=== PATIENT | female | born 1990 | race African-American/Black ===

== ENCOUNTER → 2023-07-14 | Emergency (ER) | payer SELFPAY ==
[2023-07-14 04:46] LABS: Absolute Eosinophils 0.1 K/uL (0-0.5); Absolute Lymphocytes (CBC) 1.9 K/uL (0.7-4.9); Absolute Monocytes 0.4 K/uL (0.1-1.3); Absolute Neutrophil 2.2 K/uL (1.8-8.0); Basophils % 0.4 % (0-1.3); Eosinophils % 2.5 % (0-4.4); Hematocrit 36.9 % (36.0-45.0); Hemoglobin 12.2 g/dL (12.0-15.0); Lymphocytes % 41.8 % (15.3-44.8); MCH 26.5 pg (27.0-35.0); MCHC 33.1 g/dL (32.0-36.0); MPV 9.3 fL (7.6-11.3); Monocytes % 8.5 % (3.3-12.3); Neutrophils % 46.8 % (41.7-73.7); Nucleated Red Blood Cells % 0.2 % (0-0); Platelets 202 thou/uL (152-406); RBC Red Blood Cell Count 4.61 M/uL (3.86-4.86); Red Cell Distribution Width 14.9 % (12.1-15.2)
[2023-07-14 05:04] LABS: PT Prothrombin Time 11.5 SECONDS (9.5-12.5); Protime INR 1.05
[2023-07-14 05:24] LABS: ALT/SGPT 43 U/L (13-56); AST/SGOT 56 U/L (15-37); Albumin 3.6 g/dL (3.4-5.0); Albumin/Globulin Ratio 0.7 (1.1-1.8); Alkaline Phosphatase 61 U/L (45-117); Anion Gap 7.7 mEq/L (5.0-15.0); BUN Blood Urea Nitrogen 12 mg/dL (7-18); Bicarbonate 28 mEq/L (21-32); Bilirubin Total 0.2 mg/dL (0.2-1.0); Globulin 5.2 g/dL (2.3-3.5); Glomerular Filtration Rate 119 ml/min (=/>90); Glucose Level 115 mg/dL (74-106); Magnesium 1.9 mg/dL (1.6-2.4); NT PRO-BNP 18 pg/mL (<125); Potassium 3.7 mEq/L (3.5-5.1); Protein, Total 8.8 g/dL (6.4-8.2); Sodium Level 138 mEq/L (136-145)
[2023-07-14 05:29] LABS: Bilirubin Direct < 0.1 mg/dL (0-0.2); Bilirubin Indirect, Calculated ND mg/dL (0.2-0.8); Troponin High Sensitivity < 3.0 pg/mL (<58.9)
[2023-07-14 05:29] LABS: Barbiturates NEGATIVE (NEGATIVE); Benzodiazepines NEGATIVE (NEGATIVE); Cocaine NEGATIVE (NEGATIVE); METHAMPHETAM NEGATIVE (NEGATIVE); Methadone NEGATIVE (NEGATIVE); Opiates NEGATIVE (NEGATIVE); Phencyclidine NEGATIVE (NEGATIVE); THC Cannibis NEGATIVE (NEGATIVE)
--- NOTE | 2023-07-14 06:09 | EDPHYS ---
Physician Documentation [facility] Name: Teresa Bales Age: 33 yrs Sex: Female : 1990 Arrival Date: 07/14/2023 Time: 03:45 Bed 10 Private MD: ED Physician Antonio Pardo HPI: 07/13 04:10 This 33 yrs old Black Female presents to ER via Ambulatory with complaints of Numbness sp4 Of Hand. 06:09 33-year-old black female presents with complaint of bilateral hand numbness and sp4 tingling. . Historical: - Allergies: 04:00 No Known Allergies; rv - PMHx: 04:00 None; rv - PSHx: 04:00 section; rv - Immunization history:: Adult Immunizations up to date. - Social history:: Smoking status: Patient denies any tobacco usage or history of. - Family history:: not pertinent. ROS: 06:09 Constitutional: Negative for fever, chills, and weight loss, positive for numbness and sp4 tingling of bilateral hands 06:09 All other systems are negative, Exam: 06:09 Constitutional: This is a well developed, well nourished patient who is awake, alert, sp4 and in no acute distress. Head/Face: Normocephalic, atraumatic. Eyes: Pupils equal round and reactive to light, extra-ocular motions intact. Lids and lashes normal. Conjunctiva and sclera are not injected. Cornea within normal limits. Periorbital areas with no swelling, redness, or edema. ENT: Nares patent. No nasal discharge, no septal abnormalities noted. Tympanic membranes are normal and external auditory canals are clear. Oropharynx with no redness, swelling, or masses, exudates, or evidence of obstruction, uvula midline. Mucous membranes moist. Neck: Trachea midline, no thyromegaly or masses palpated, and no cervical lymphadenopathy. Supple, full range of motion without nuchal rigidity, or vertebral point tenderness. Chest/axilla: Normal chest wall appearance and motion. Nontender with no deformity. No lesions are appreciated. Cardiovascular: Regular rate and rhythm with a normal S1 and S2. No gallops, murmurs, or rubs. Normal PMI, no JVD. No pulse deficits. Respiratory: Lungs have equal breath sounds bilaterally, clear to auscultation and percussion. No rales, rhonchi or wheezes noted. No increased work of breathing, no retractions or nasal flaring. Abdomen/GI: Soft, with normal bowel sounds. No distension or tympany. No guarding or rebound. No evidence of tenderness throughout. Back: No spinal tenderness. No costovertebral tenderness. Skin: Warm, dry with normal turgor. Normal color with no rashes, no lesions, and no evidence of cellulitis. MS/ Extremity: Pulses equal, no cyanosis. Neurovascular intact. Full, normal range of motion. Neuro: Awake and alert, GCS 15, oriented to person, place, time, and situation. Cranial nerves II-XII grossly intact. Motor strength 5/5 in all extremities. Sensory grossly intact. Psych: Awake, alert, with orientation to person, place and time. Behavior, mood, and affect are within normal limits 06:09 ECG was reviewed by the Attending Physician. EKG at 0 424 reveals normal sinus rhythm at a rate of 63 Vital Signs: 03:58 BP 141 / 107; Pulse 72; Resp 17; Temp 98; Pulse Ox 100% ; Weight 118.39 kg; Height 5 rv ft. 4 in. ; 05:00 BP 124 / 69; Pulse 85; Resp 16; Pulse Ox 100% on R/A; pf1 06:00 BP 118 / 77; Pulse 65; Resp 16; Temp 98.2; Pulse Ox 99% on R/A; Pain 0/10; pf1 03:58 Body Mass Index 44.80 (118.39 kg, 162.56 cm) rv 06:00 Pain Scale: Adult pf1 NIH Stroke Scale Scores: 06:09 NIHSS Score: 0 sp4 [place] Coma Score: 06:09 Eye Response: spontaneous(4). Motor Response: obeys commands(6). Verbal Response: sp4 oriented(5). Total: 15. MDM: 04:11 Patient medically screened. sp4 06:09 Differential diagnosis: Paresthesias. Data reviewed: vital signs, nurses notes, lab sp4 test result(s), EKG. ED course: Workup today is unremarkable patient stable for discharge home. Advised follow-up with tree care foreman for thyroid panel check and other tests with primary care physician may find necessary. . 07/13 04:19 Order name: Basic Metabolic Panel; Complete Time: 05:55 sp4 07/13 04:19 Order name: CBC with Diff; Complete Time: 05:55 sp4 07/13 04:19 Order name: LFT's; Complete Time: 05:55 sp4 07/13 04:19 Order name: Magnesium; Complete Time: 05:55 sp4 07/13 04:19 Order name: NT PRO-BNP; Complete Time: 05:55 sp4 07/13 04:19 Order name: PT-INR; Complete Time: 05:55 sp4 07/13 04:19 Order name: Troponin HS; Complete Time: 05:55 sp4 07/13 04:19 Order name: Test, Serum; Complete Time: 05:55 sp4 07/13 04:19 Order name: Urine Drug Screen; Complete Time: 05:55 sp4 07/13 04:19 Order name: EKG; Complete Time: 04:19 sp4 07/13 04:19 Order name: Cardiac monitoring; Complete Time: 04:25 sp4 07/13 04:19 Order name: EKG - Nurse/Tech; Complete Time: 04:38 sp4 07/13 04:19 Order name: IV Saline Lock; Complete Time: 04:38 sp4 07/13 04:19 Order name: Labs collected and sent; Complete Time: 04:38 sp4 07/13 04:19 Order name: O2 Per Protocol; Complete Time: 04:25 sp4 07/13 04:19 Order name: O2 Sat Monitoring; Complete Time: 04:25 sp4 Administered Medications: No medications were administered Disposition Summary: 07/14/23 06:08 Discharge Ordered Problem: new sp4 Symptoms: have improved sp4 Condition: Stable sp4 Diagnosis - Paresthesia of skin sp4 - Bilateral hand numbness and ting sp4 Followup: sp4 - With: Terrence Kaminski DO - When: 7 - 10 days - Reason: Recheck today's complaints Discharge Instructions: - Discharge Summary Sheet sp4 - Paresthesia sp4 Forms: - Patient Portal Instructions sp4 NIH Stroke Scale - NIH Stroke Score Date: 07/14/2023 Time: 06:09 Total Score = 0 10. Dysarthria (speech clarity - read or repeat words) - 0(Normal) 11. Extinction and Inattention (visual/tactile/auditory/spatial/personal) - 0(No abnormality) 1a. Level of Consciousness (LOC) - 0(Alert) 1b. Level of Consciousness (LOC) (Month \T\ Age) - 0(Both) 1c. LOC Commands (Open \T\ Closes Eyes/Store Consultant) - 0(Both) 2. Best Gaze (Lateral Gaze Paresis) - 0(Normal) 3. Visual Field Loss - 0(No visual loss) 4. Facial Palsy - 0(Normal) 5a. Left Arm: Motor (10-second hold) - 0(No drift) 5b. Right Arm: Motor (10-second hold) - 0(No drift) 6a. Left Leg: Motor (5-second hold - always test supine) - 0(No drift) 6b. Right Leg: Motor (5-second hold - always test supine) - 0(No drift) 7. Limb Ataxia (finger/nose \T\ heel/ruff - test with eyes open) - 0(Absent) 8. Sensory Loss (pinprick arms/legs/face) - 0(Normal) 9. Best Language: Aphasia (description/naming/reading) - 0(No aphasia) Initials: sp4 Signatures: Dispatcher [employer] Joaquín Wall, Antonio Joiner RN, MD MD sp4
--- NOTE | 2023-07-14 06:09 | ER ---
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 denies chest pain/sob/fever. Coronavirus screen: At this time, the client does not indicate any symptoms associated with coronavirus-19. Ebola Screen: No symptoms or risks identified at this time. Initial Sepsis Screen: Does the patient meet any 2 criteria? No. Patient's initial sepsis screen is negative. Does the patient have a suspected source of infection? No. Patient's initial sepsis screen is negative. Risk Assessment: Do you want to hurt yourself or someone else? Patient reports no desire to harm self or others. Onset of symptoms was July 14, 2023. 03:58 Method Of Arrival: Ambulatory rv 03:58 Acuity: CARLOS 4 rv Triage Assessment: 04:00 General: Appears comfortable, Behavior is calm, cooperative. Pain: Denies pain. Neuro: rv Level of Consciousness is awake, alert, obeys commands, Oriented to person, place, time, situation. Cardiovascular: Capillary refill < 3 seconds Patient's skin is warm and dry. Respiratory: Airway is patent Respiratory effort is even, unlabored. GI: No signs and/or symptoms were reported involving the gastrointestinal system. : No signs and/or symptoms were reported regarding the genitourinary system. Historical: - Allergies: 04:00 No Known Allergies; rv - PMHx: 04:00 None; rv - PSHx: 04:00 section; rv - Immunization history:: Adult Immunizations up to date. - Social history:: Smoking status: Patient denies any tobacco usage or history of. - Family history:: not pertinent. Screenin:00 [facility] ED Fall Risk Assessment (Adult) History of falling in the last 3 months, rv including since admission No falls in past 3 months (0 pts) Score/Fall Risk Level 0 - 2 = Low Risk Oriented to surroundings, Maintained a safe environment, Educated pt \T\ family on fall prevention, incl call for assistance when getting out of bed, Assessed \T\ reinforced patient's understanding of fall precautions. Abuse screen: Denies threats or abuse. Denies injuries from another. Nutritional screening: No deficits noted. Tuberculosis screening: No symptoms or risk factors identified. Assessment: 04:05 General: Appears in no apparent distress. comfortable, obese, well groomed, well pf1 developed, Behavior is calm, cooperative, appropriate for age, quiet. 04:05 Pain: Denies pain. Neuro: Level of Consciousness is awake, alert, obeys commands, pf1 Oriented to person, place, time, situation, Reports numbness in right hand and worse to the left hand. Cardiovascular: No deficits noted. Capillary refill < 3 seconds Patient's skin is warm and dry. Respiratory: No deficits noted. Airway is patent Respiratory effort is even, unlabored, Respiratory pattern is regular, symmetrical. GI: No deficits noted. No signs and/or symptoms were reported involving the gastrointestinal system. Abdomen is round non-distended, Bowel sounds present X 4 quads. : No deficits noted. No signs and/or symptoms were reported regarding the genitourinary system. EENT: No deficits noted. No signs and/or symptoms were reported regarding the EENT system. Derm: No deficits noted. No signs and/or symptoms reported regarding the dermatologic system. Musculoskeletal: Reports numbness in right hand and left hand. 05:00 Reassessment: Patient appears in no apparent distress at this time. Patient and/or pf1 family updated on plan of care and expected duration. Pain level reassessed. Patient is alert, oriented x 3, equal unlabored respirations, skin warm/dry/pink. Patient states feeling better. Patient states symptoms have improved. 06:00 Reassessment: Patient appears in no apparent distress at this time. Patient and/or pf1 family updated on plan of care and expected duration. Pain level reassessed. Patient is alert, oriented x 3, equal unlabored respirations, skin warm/dry/pink. Patient denies pain at this time. Patient states feeling better. Patient states symptoms have improved. Vital Signs: 03:58 BP 141 / 107; Pulse 72; Resp 17; Temp 98; Pulse Ox 100% ; Weight 118.39 kg; Height 5 rv ft. 4 in. ; 05:00 BP 124 / 69; Pulse 85; Resp 16; Pulse Ox 100% on R/A; pf1 06:00 BP 118 / 77; Pulse 65; Resp 16; Temp 98.2; Pulse Ox 99% on R/A; Pain 0/10; pf1 03:58 Body Mass Index 44.80 (118.39 kg, 162.56 cm) rv 06:00 Pain Scale: Adult pf1 [place] Coma Score: 06:09 Eye Response: spontaneous(4). Motor Response: obeys commands(6). Verbal Response: sp4 oriented(5). Total: 15. NIH Stroke Scale Scores: 06:09 NIHSS Score: 0 sp4 ED Course: 03:48 Patient arrived in ED. mr 04:00 Triage completed. rv 04:00 Arm band placed on right wrist. rv 04:00 Patient has correct armband on for positive identification. Client placed on continuous rv cardiac and pulse oximetry monitoring. NIBP monitoring applied. 04:00 Door closed. Noise minimized. pf1 04:00 No provider procedures requiring assistance completed. rv 04:10 Antonio Pardo MD is Attending Physician. sp4 04:15 Warm blanket given. pf1 04:24 EKG done, by ED staff, reviewed by Antonio Pardo MD. pf1 04:34 Inserted saline lock: 22 gauge in right antecubital area, using aseptic technique. kmf Blood collected. 04:35 Initial lab(s) drawn, by al, sent to lab. km 06:07 Terrence Kaminski DO is Referral Physician. sp4 06:16 Provided Education on: follow up. pf1 06:16 IV discontinued, intact, bleeding controlled, No redness/swelling at site. Pressure pf1 dressing applied. Administered Medications: No medications were administered Medication: 04:00 VIS not applicable for this client. rv Outcome: 06:08 Discharge ordered by . sp4 06:16 Discharged to home ambulatory, pf1 06:16 Condition: improved 06:16 Discharge instructions given to patient, Instructed on discharge instructions, follow up and referral plans. Demonstrated understanding of instructions, follow-up care, 06:17 Patient left the ED. pf1 NIH Stroke Scale - NIH Stroke Score Date: 07/14/2023 Time: 06:09 Total Score = 0 10. Dysarthria (speech clarity - read or repeat words) - 0(Normal) 11. Extinction and Inattention (visual/tactile/auditory/spatial/personal) - 0(No abnormality) 1a. Level of Consciousness (LOC) - 0(Alert) 1b. Level of Consciousness (LOC) (Month \T\ Age) - 0(Both) 1c. LOC Commands (Open \T\ Closes Eyes/Air Conditioning Unit Assembler) - 0(Both) 2. Best Gaze (Lateral Gaze Paresis) - 0(Normal) 3. Visual Field Loss - 0(No visual loss) 4. Facial Palsy - 0(Normal) 5a. Left Arm: Motor (10-second hold) - 0(No drift) 5b. Right Arm: Motor (10-second hold) - 0(No drift) 6a. Left Leg: Motor (5-second hold - always test supine) - 0(No drift) 6b. Right Leg: Motor (5-second hold - always test supine) - 0(No drift) 7. Limb Ataxia (finger/nose \T\ heel/ruff - test with eyes open) - 0(Absent) 8. Sensory Loss (pinprick arms/legs/face) - 0(Normal) 9. Best Language: Aphasia (description/naming/reading) - 0(No aphasia) Initials: sp4 Signatures: McgillElle hdz, Reg Reg mr Joaquín Elder, RN Silvia Ha RN RN pf1 Antonio Pardo MD MD sp4 Karen Ceballos [facility]
[2023-07-14 06:45] VITALS: BP 141/107; TEMP 98; O2SAT 100
--- NOTE | 2023-07-15 14:25 | EKG ---
Test Date: 2023-07-14 Test Time: 04:24:40 Medical Support Assistant: SUAD MEASUREMENT RESULTS: Intervals: Rate: 63 [place]: 158 QRSD: 92 QT: 432 QTc: 442 [place]: P: 21 [place]: 158 QRS: -9 T: 14 INTERPRETIVE STATEMENTS: Normal sinus rhythm with sinus arrhythmia Normal ECG No previous ECG available for comparison Electronically Signed On 07-15-23 14:23:50 CDT by Rahul Chan
== END ==
LOC: EDBD 03:45 → ER 03:45
DX: R20.2 Paresthesia of skin (principal); R20.0 Anesthesia of skin
CPT/HCPCS: 36415; 80048; 80076; 80307; 83735; 83880; 84484; 84703; 85025; 85610; 93005; 99284

== ENCOUNTER 2023-10-01 18:05 | Emergency (ER) | payer SELFPAY ==
[2023-10-01 18:53] LABS: Absolute Monocytes 0.4 K/uL (0.1-1.3); Absolute Neutrophil 2.4 K/uL (1.8-8.0); Basophils % 0.3 % (0-1.3); Hematocrit 37.8 % (36.0-45.0); Lymphocytes % 40.9 % (15.3-44.8); MCH 25.7 pg (27.0-35.0); MCHC 31.7 g/dL (32.0-36.0); MCV 81.2 fL (80-100); MPV 9.8 fL (7.6-11.3); Monocytes % 8.6 % (3.3-12.3); Neutrophils % 49.2 % (41.7-73.7); Platelets 211 thou/uL (152-406); RBC Red Blood Cell Count 4.66 M/uL (3.86-4.86); Red Cell Distribution Width 15.4 % (12.1-15.2)
[2023-10-01 19:20] LABS: Anion Gap 8.4 mEq/L (5.0-15.0); BUN Blood Urea Nitrogen 15 mg/dL (7-18); Bicarbonate 28 mEq/L (21-32); Glomerular Filtration Rate 119 ml/min (=/>90); Glucose Level 116 mg/dL (74-106); Magnesium 1.6 mg/dL (1.6-2.4); Potassium 3.4 mEq/L (3.5-5.1); Sodium Level 137 mEq/L (136-145); Thyroid Stimulating Hormone 0.429 uIU/mL (0.358-3.740)
[2023-10-01 19:22] LABS: Troponin High Sensitivity < 3.0 pg/mL (<58.9)
--- NOTE | 2023-10-01 19:49 | RAD REPORT ---
EXAM DESCRIPTION: Tania Single View10/01/2023 7:25 pm CLINICAL HISTORY: Palpitations COMPARISON: none FINDINGS: The lungs appear clear of acute infiltrate. The heart is normal size IMPRESSION: No acute abnormalities displayed
--- NOTE | 2023-10-01 20:11 | EDPHYS ---
Physician Documentation [facility] Name: Teresa Bales Age: 33 yrs Sex: Female : 1990 Arrival Date: 10/01/2023 Time: 18:05 Bed 14 Private MD: ED Physician Yovanny Vallejo HPI: 09/30 23:57 This 33 yrs old Black Female presents to ER via Ambulatory with complaints of kb Palpitations. 23:57 Patient is a 33-year-old female who presents for intermittent palpitations since kb yesterday. States it only lasts for a couple of beats that she takes deep breath and it goes away. Denies any medical history, shortness of breath, chest pain. . Historical: - Allergies: 18:20 No Known Allergies; mb9 - Home Meds: 18:20 None [Active]; mb9 - PMHx: 18:20 None; mb9 - PSHx: 18:20 section; mb9 - Immunization history:: Adult Immunizations up to date. - Infectious Disease History:: Denies. - Social history:: Smoking status: Patient denies any tobacco usage or history of. ROS: 23:57 Constitutional: As per HPI kb Exam: 23:57 Constitutional: This is a well developed, well nourished patient who is awake, alert, kb and in no acute distress. Head/Face: Normocephalic, atraumatic. ENT: Moist Mucous membranes Cardiovascular: Regular rate Respiratory: Respirations even and unlabored. No increased work of breathing. Talking in full sentences Abdomen/GI: Soft, non-tender. No distention Skin: Warm, dry with normal turgor. Normal color. MS/ Extremity: Pulses equal, no cyanosis. Neurovascular intact. Full, normal range of motion. Neuro: Awake and alert, GCS 15, oriented to person, place, time, and situation. Moves all extremities. Normal gait. 23:57 ECG was reviewed by the Attending Physician. Vital Signs: 18:19 BP 145 / 87; Pulse 66; Resp 18; Temp 98; Pulse Ox 100% ; Weight 117.93 kg; Height 5 ft. mb9 6 in. ; Pain 0/10; 19:22 BP 118 / 97; Pulse 65; Pulse Ox 100% on R/A; Pain 0/10; tm6 20:37 BP 106 / 80; Pulse 63; Resp 19; Temp 96.9(TE); Pulse Ox 100% on R/A; Pain 0/10; tm6 18:19 Body Mass Index 41.96 (117.93 kg, 167.64 cm) mb9 18:19 Pain Scale: Adult mb9 19:22 Pain Scale: Adult tm6 20:37 Pain Scale: Adult tm6 MDM: 18:12 Patient medically screened. kb 23:57 Differential diagnosis: arrythmia, dehydration, stress disorder. Data reviewed: vital kb signs, nurses notes. Counseling: I had a detailed discussion with the patient and/or guardian regarding the historical points, exam findings, and any diagnostic results supporting the discharge/admit diagnosis, lab results, radiology results, the need for outpatient follow up, a family practitioner, to return to the emergency department if symptoms worsen or persist or if there are any questions or concerns that arise at home. 09/30 18:23 Order name: Basic Metabolic Panel; Complete Time: 19:24 kb 09/30 18:23 Order name: CBC with Diff; Complete Time: 19:14 kb 09/30 18:23 Order name: Magnesium; Complete Time: 19:24 kb 09/30 18:23 Order name: Troponin HS; Complete Time: 19:24 kb 04 18:23 Order name: TSH; Complete Time: 19:24 kb 04 18:23 Order name: XRAY Chest (1 view); Complete Time: 19:49 kb 09/30 18:23 Order name: EKG; Complete Time: 18:24 kb 09/30 18:23 Order name: Cardiac monitoring; Complete Time: 18:27 kb 09/30 18:23 Order name: EKG - Nurse/Tech; Complete Time: 18:27 kb 09/30 18:23 Order name: IV Saline Lock; Complete Time: 18:36 kb 04 18:23 Order name: Labs collected and sent; Complete Time: 18:36 kb 09/30 18:23 Order name: O2 Per Protocol; Complete Time: 18:27 kb 09/30 18:23 Order name: O2 Sat Monitoring; Complete Time: 18:27 kb EC:57 Rate is 69 beats/min. Rhythm is regular. QRS [place] is Normal. OR interval is normal at kb 154 msec. QRS interval is normal at 92 msec. QT interval is normal at 435 msec. Administered Medications: No medications were administered Disposition Summary: 10/01/23 20:11 Discharge Ordered Notes: Location: Home kb Condition: Stable kb Diagnosis - Palpitations kb Followup: kb - With: Emergency Department - When: As needed - Reason: Worsening of condition Followup: kb - With: Private Physician - When: 2 - 3 days - Reason: Recheck today's complaints, Continuance of care, Re-evaluation by your physician Discharge Instructions: - Discharge Summary Sheet kb - Palpitations, Bnur-yx-Sble kb Forms: - Medication Reconciliation Form kb - Antibiotic Education kb - Prescription Opioid Use kb - Patient Portal Instructions kb - Leadership Thank You Letter kb Signatures: Dispatcher [employer] Ingrid Ibrahim, CB-C CB-Elle Prasad, RN RN mb9
--- NOTE | 2023-10-01 20:11 | ER ---
Nurse's Notes [facility] Name: Teresa Bales Age: 33 yrs Sex: Female : 1990 Arrival Date: 10/01/2023 Time: 18:05 Bed 14 Private MD: Diagnosis: Palpitations Presentation: 09/30 18:19 Chief complaint: Patient states: "I've had flutters since yesterday that have me SOB. mb9 They come and go". Coronavirus screen: Vaccine status: Patient reports receiving the 2nd dose of the covid vaccine. Ebola Screen: No symptoms or risks identified at this time. Initial Sepsis Screen: Does the patient meet any 2 criteria? No. Patient's initial sepsis screen is negative. Does the patient have a suspected source of infection? No. Patient's initial sepsis screen is negative. Risk Assessment: Do you want to hurt yourself or someone else? Patient reports no desire to harm self or others. Onset of symptoms was October 01, 2023. 18:19 Method Of Arrival: Ambulatory 9 18:19 Acuity: CARLOS 3 mb9 Triage Assessment: 18:20 General: Appears in no apparent distress. uncomfortable, obese, Behavior is bp cooperative, appropriate for age, anxious. Pain: Denies pain. Cardiovascular: Reports palpitations, Rhythm is sinus rhythm. Historical: - Allergies: 18:20 No Known Allergies; mb9 - Home Meds: 18:20 None [Active]; mb9 - PMHx: 18:20 None; mb9 - PSHx: 18:20 section; mb9 - Immunization history:: Adult Immunizations up to date. - Infectious Disease History:: Denies. - Social history:: Smoking status: Patient denies any tobacco usage or history of. Screenin:20 [facility] ED Fall Risk Assessment (Adult) History of falling in the last 3 months, bp including since admission No falls in past 3 months (0 pts). Abuse screen: Denies threats or abuse. Denies injuries from another. Nutritional screening: No deficits noted. Tuberculosis screening: No symptoms or risk factors identified. Assessment: 18:20 General: Appears in no apparent distress. Behavior is cooperative, appropriate for age, bp anxious. Pain: Denies pain. Neuro: No deficits noted. Cardiovascular: Rhythm is sinus rhythm. Respiratory: No deficits noted. GI: No signs and/or symptoms were reported involving the gastrointestinal system. : No signs and/or symptoms were reported regarding the genitourinary system. EENT: No deficits noted. 19:23 Reassessment: Patient appears in no apparent distress at this time. Patient and/or tm6 family updated on plan of care and expected duration. Pain level reassessed. Patient is alert, oriented x 3, equal unlabored respirations, skin warm/dry/pink. Vital Signs: 18:19 BP 145 / 87; Pulse 66; Resp 18; Temp 98; Pulse Ox 100% ; Weight 117.93 kg; Height 5 ft. mb9 6 in. ; Pain 0/10; 19:22 BP 118 / 97; Pulse 65; Pulse Ox 100% on R/A; Pain 0/10; tm6 20:37 BP 106 / 80; Pulse 63; Resp 19; Temp 96.9(TE); Pulse Ox 100% on R/A; Pain 0/10; tm6 18:19 Body Mass Index 41.96 (117.93 kg, 167.64 cm) mb9 18:19 Pain Scale: Adult mb9 19:22 Pain Scale: Adult tm6 20:37 Pain Scale: Adult tm6 ED Course: 18:07 Patient arrived in ED. mr 18:12 Ingrid Arango FNP-C is [facility]. kb 18:12 Yovanny Vallejo MD is Attending Physician. kb 18:14 Mauricio Ruiz, ANAND is Primary Nurse. bp 18:20 Triage completed. mb9 18:20 Arm band placed on. mb9 18:20 Patient has correct armband on for positive identification. bp 18:20 EKG done, by ED staff, reviewed by Ingrid COX. mb9 18:36 Inserted saline lock: 22 gauge in right antecubital area, using aseptic technique. bp Blood collected. 19:26 XRAY Chest (1 view) In Process Unspecified. EDMS 19:55 Primary Nurse role handed off by Mauricio Ruiz, RN as6 20:37 Provided Education on: follow up with pcp. tm6 20:37 No provider procedures requiring assistance completed. IV discontinued, intact, tm6 bleeding controlled, No redness/swelling at site. Pressure dressing applied. Administered Medications: No medications were administered Medication: 18:20 VIS not applicable for this client. bp Outcome: 20:11 Discharge ordered by MD. rodriguez 20:37 Discharged to home ambulatory, tm6 20:37 Condition: stable 20:37 Discharge instructions given to patient, Instructed on discharge instructions, follow up and referral plans. Demonstrated understanding of instructions, follow-up care, 20:38 Patient left the ED. tm6 Signatures: Dispatcher [employer] EDMS Ingrid Arango, GLOBAL ENGINEERING MANAGER-C GLOBAL ENGINEERING MANAGER-Ckb Elle Mcgill, Reg Reg mr Mauricio Ruiz, RN RN Marlon Gustafson RN RN as6 Elle Van, RN RN mb9 Brooklyn Turpin RN RN tm6
[2023-10-01 21:05] VITALS: BP 106/80; TEMP 96.9; O2SAT 100
--- NOTE | 2023-10-02 16:33 | EKG ---
Test Date: 2023-10-01 Test Time: 18:17:33 Tire Wrapper: MB MEASUREMENT RESULTS: Intervals: Rate: 69 [place]: 154 QRSD: 92 QT: 406 QTc: 435 [place]: P: 35 [place]: 154 QRS: -13 T: 26 INTERPRETIVE STATEMENTS: Normal sinus rhythm with sinus arrhythmia Nonspecific T wave abnormality Abnormal ECG Compared to ECG 07/14/2023 04:24:40 T-wave abnormality now present Electronically Signed On 10-02-23 16:31:36 CDT by Leonardo Adam
== END 2023-10-01 20:38 | disposition home or self-care (01) ==
LOC: ER 18:05
DX: R00.2 Palpitations (principal)
CPT/HCPCS: 36415; 71045; 80048; 83735; 84443; 84484; 85025; 93005; 99284

== ENCOUNTER 2024-01-06 08:15 | Emergency (ER) | payer BC ==
--- NOTE | 2024-01-06 09:01 | ER ---
Nurse's Notes [facility] Name: Teresa Bales Age: 33 yrs Sex: Female : 1990 Arrival Date: 01/06/2024 Time: 08:15 Bed 8 Private MD: Diagnosis: Facial cellulitis Presentation: 01/05 08:40 Chief complaint: Patient states: "I HAD A PIMPLE UNDER MY EYE AND I SQUEEZED IT, NOW I tm6 THINK MY EYE IS INFECTED.". Coronavirus screen: At this time, the client does not indicate any symptoms associated with coronavirus-19. Ebola Screen: No symptoms or risks identified at this time. Initial Sepsis Screen: Does the patient meet any 2 criteria? No. Patient's initial sepsis screen is negative. Does the patient have a suspected source of infection? No. Patient's initial sepsis screen is negative. Risk Assessment: Do you want to hurt yourself or someone else? Patient reports no desire to harm self or others. Onset of symptoms is unknown. 08:40 Method Of Arrival: Ambulatory tm6 08:40 Acuity: CARLOS 4 tm6 Triage Assessment: 08:41 General: Appears in no apparent distress. Behavior is calm, cooperative, appropriate tm6 for age. Pain: Complains of pain in left eye. EENT: LEFT GREY-ORBITAL EDEMA AND ERTYTHEMA. 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 - Infectious Disease History:: Denies. - Social history:: Smoking status: Patient denies any tobacco usage or history of. - Family history:: not pertinent. Screenin:55 [facility] ED Fall Risk Assessment (Adult) History of falling in the last 3 months, dd2 including since admission No falls in past 3 months (0 pts) Confusion or Disorientation No (0 pts) Intoxicated or Sedated No (0 pts) Impaired Gait No (0 pts) Mobility Assist Device Used No (0 pt) Altered Elimination No (0 pt) Score/Fall Risk Level 0 - 2 = Low Risk Oriented to surroundings, Maintained a safe environment, Hourly rounding (assess needs \\T\\ fall precautionary measures) done. Abuse screen: Denies threats or abuse. Nutritional screening: No deficits noted. Tuberculosis screening: No symptoms or risk factors identified. Assessment: 08:55 General: Appears in no apparent distress. Behavior is calm, cooperative, appropriate dd2 for age. Pain: Complains of pain in left eye Pain currently is 3 out of 10 on a pain scale. Neuro: Level of Consciousness is awake, alert, obeys commands, Oriented to person, place, time, situation, Appropriate for age. Cardiovascular: No deficits noted. Patient's skin is warm and dry. Respiratory: No deficits noted. Airway is patent Respiratory effort is even, unlabored, Respiratory pattern is regular, symmetrical. GI: No deficits noted. Abdomen is non-distended. : No deficits noted. No signs and/or symptoms were reported regarding the genitourinary system. EENT: No deficits noted. Derm: Wound noted left lower eyelid Rash noted that is red, raised, on left eye lt neck edema to lymph node. Musculoskeletal: No deficits noted. No signs and/or symptoms reported regarding the musculoskeletal system. Vital Signs: 08:40 BP 152 / 97; Pulse 74; Resp 16; Temp 98; Pulse Ox 99% ; tm6 09:07 BP 148 / 91; Pulse 76; Resp 16; Pulse Ox 99% ; dd2 ED Course: 08:17 Patient arrived in ED. jj6 08:21 Jake Ray MD is Attending Physician. rt 08:41 Triage completed. tm6 08:41 Arm band placed on. tm6 08:45 SAVANNAH YOUSIF, RN is Primary Nurse. dd2 08:55 Patient has correct armband on for positive identification. Bed in low position. Call dd2 light in reach. Side rails up X 1. Provided Education on: call light, tests. Door closed. Warm blanket given. 08:55 No provider procedures requiring assistance completed. dd2 09:01 Patient did not have IV access during this emergency room visit. dd2 Administered Medications: No medications were administered Medication: 08:55 VIS not applicable for this client. dd2 Outcome: 09:00 Discharge ordered by . rt 09:08 Discharged to home ambulatory, dd2 09:08 Condition: stable 09:08 Discharge instructions given to patient, Instructed on discharge instructions, follow up and referral plans. medication usage, Demonstrated understanding of instructions, follow-up care, medications, Prescriptions given X 1, 09:08 Patient left the ED. dd2 Signatures: Annette Gonzales jj6 Jake Ray MD MD rt Brooklyn Turpin RN RN tm6 SAVANNAH YOUSIF RN RN dd2 Corrections: (The following items were deleted from the chart) 09:00 08:55 Derm: Rash noted that is red, raised, on left eye lt neck edema to lymph node dd2 dd2
--- NOTE | 2024-01-06 09:01 | EDPHYS ---
Physician Documentation [facility] Name: Teresa Bales Age: 33 yrs Sex: Female : 1990 Arrival Date: 01/06/2024 Time: 08:15 Bed 8 Private MD: ED Physician Jake Ray HPI: 01/05 09:44 This 33 yrs old Black Female presents to ER via Ambulatory with complaints of Eye rt Problem. 09:44 Patient presents to the ED after having reported adventist under the left eye which she rt squeezed yesterday. Reports some swelling, redness inferior to the eye. Reports pain at the angle of the left jaw. Denies eye redness, blurred vision, double vision. Denies other acute complaints at this time, symptoms are moderate in severity, no other aggravating or alleviating factors.. 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 - Infectious Disease History:: Denies. - Social history:: Smoking status: Patient denies any tobacco usage or history of. - Family history:: not pertinent. ROS: 09:44 Constitutional: Negative for fever, chills, and weight loss, Eyes: Negative for injury, rt pain, redness, and discharge, Cardiovascular: Negative for chest pain, palpitations, and edema, Respiratory: Negative for shortness of breath, cough, wheezing, and pleuritic chest pain, Abdomen/GI: Negative for abdominal pain, nausea, vomiting, diarrhea, and constipation, Neuro: Negative for headache, weakness, numbness, tingling, and seizure, Exam: 09:44 Constitutional: This is a well developed, well nourished patient who is awake, alert, rt and in no acute distress. Chest/axilla: Normal chest wall appearance and motion. Nontender with no deformity. No lesions are appreciated. Cardiovascular: Regular rate and rhythm with a normal S1 and S2. No gallops, murmurs, or rubs. Normal PMI, no JVD. No pulse deficits. Respiratory: Lungs have equal breath sounds bilaterally, clear to auscultation and percussion. No rales, rhonchi or wheezes noted. No increased work of breathing, no retractions or nasal flaring. Abdomen/GI: Soft, non-tender, with normal bowel sounds. No distension or tympany. No guarding or rebound. No evidence of tenderness throughout. 09:44 Head/face: Superior to the eye, there is a small area of erythema, no fluctuance, drainable abscess. There is a palpable lymph node at the angle of the jaw, no erythema.. 09:44 Eyes: Conjunctiva normal, extraocular muscles are intact. Vital Signs: 08:40 BP 152 / 97; Pulse 74; Resp 16; Temp 98; Pulse Ox 99% ; tm6 09:07 BP 148 / 91; Pulse 76; Resp 16; Pulse Ox 99% ; dd2 MDM: 08:46 Patient medically screened. rt 09:44 Differential diagnosis: Facial cellulitis, preseptal cellulitis, orbital cellulitis. rt Data reviewed: vital signs, nurses notes. Test considered but Not performed: Other Details Patient was only minor facial cellulitis, no signs of drainable abscess, patient has no physical exam findings to indicated orbital cellulitis, CT scan, labs are not indicated. Counseling: I had a detailed discussion with the patient and/or guardian regarding the historical points, exam findings, and any diagnostic results supporting the discharge/admit diagnosis, the need for outpatient follow up, to return to the emergency department if symptoms worsen or persist or if there are any questions or concerns that arise at home. Administered Medications: No medications were administered Disposition Summary: 01/06/24 09:00 Discharge Ordered Notes: Location: Home rt Problem: new rt Symptoms: are unchanged rt Condition: Stable rt Diagnosis - Facial cellulitis rt Followup: rt - With: Private Physician - When: 2 - 3 days - Reason: Discharge Instructions: - Discharge Summary Sheet rt - Cellulitis, Adult rt Forms: - Medication Reconciliation Form rt - Antibiotic Education rt - Prescription Opioid Use rt - Patient Portal Instructions rt - Leadership Thank You Letter rt - Work release form dd2 Prescriptions: - Doxycycline Hyclate 100 mg Oral Tablet - take 1 tablet ORAL route every 12 hours; 20 tablet; Refills: 0, Product rt Selection Permitted Signatures: Jake Ray MD MD rt Brooklyn Turpin RN RN tm6
[2024-01-06 09:14] VITALS: O2SAT 99
[2024-01-06 09:15] VITALS: BP 152/97; TEMP 98
== END 2024-01-06 09:08 | disposition home or self-care (01) ==
LOC: ER 08:15
DX: L03.211 Cellulitis of face (principal)
CPT/HCPCS: 99283

== ENCOUNTER 2024-01-07 21:58 | Emergency (ER) | payer BC ==
[2024-01-07] MEDS ORDERED: ACYCLOVIR 400 MG TABLET ONE (22:38)
[2024-01-07] MEDS ORDERED: KETOROLAC 30 MG/ML INJ ONE (22:38)
[2024-01-07] MEDS ORDERED: METOCLOPRAMIDE 10 MG/2mL INJ ONE (22:39)
--- NOTE | 2024-01-08 00:21 | ER ---
Nurse's Notes [facility] Name: Teresa Bales Age: 33 yrs Sex: Female : 1990 Arrival Date: 01/07/2024 Time: 21:58 Bed 16 Private MD: Diagnosis: Herpesviral vesicular dermatitis;Herpes Zoster Presentation: 01/06 22:02 Chief complaint: Patient states: migraine headache since this morning, body chills. kj2 22:02 Coronavirus screen: At this time, the client does not indicate any symptoms associated kj2 with coronavirus-19. Ebola Screen: No symptoms or risks identified at this time. Initial Sepsis Screen: Does the patient meet any 2 criteria? No. Patient's initial sepsis screen is negative. Does the patient have a suspected source of infection? No. Patient's initial sepsis screen is negative. Risk Assessment: Do you want to hurt yourself or someone else? Patient reports no desire to harm self or others. Onset of symptoms was January 09, 2024. 22:02 Method Of Arrival: Ambulatory kj2 22:02 Acuity: CARLOS 3 kj2 Historical: - Allergies: 23:03 No Known Allergies; kj2 - PSHx: 01/07 00:37 section; kj2 - Immunization history:: Adult Immunizations up to date. - Infectious Disease History:: Denies. - Social history:: Smoking status: Patient denies any tobacco usage or history of. - Family history:: not pertinent. Screenin/10 23:05 [facility] ED Fall Risk Assessment (Adult) History of falling in the last 3 months, kj2 including since admission No falls in past 3 months (0 pts) Confusion or Disorientation No (0 pts) Intoxicated or Sedated No (0 pts) Impaired Gait No (0 pts) Mobility Assist Device Used No (0 pt) Altered Elimination No (0 pt) Score/Fall Risk Level 0 - 2 = Low Risk Maintained a safe environment, Educated pt \T\ family on fall prevention, incl call for assistance when getting out of bed, Hourly rounding (assess needs \T\ fall precautionary measures) done. Abuse screen: Denies threats or abuse. Denies injuries from another. Nutritional screening: No deficits noted. Tuberculosis screening: No symptoms or risk factors identified. Assessment: 22:28 General: Appears in no apparent distress. comfortable, Behavior is calm, cooperative. kj2 Pain: Complains of pain in headache Pain currently is 9 out of 10 on a pain scale. Neuro: Level of Consciousness is awake, alert, obeys commands, Oriented to person, place, time, situation. Cardiovascular: Patient's skin is warm and dry. Respiratory: Airway is patent Respiratory effort is even, unlabored. GI: No signs and/or symptoms were reported involving the gastrointestinal system. : No signs and/or symptoms were reported regarding the genitourinary system. Vital Signs: 22:30 BP 142 / 101; Pulse 87; Resp 18; Temp 98.1; Pulse Ox 100% ; kj2 01/07 00:56 BP 152 / 94; Pulse 76; Resp 18; Temp 98; Pulse Ox 100% on R/A; kj2 [place] Coma Score: 20:19 Eye Response: spontaneous(4). Motor Response: obeys commands(6). Verbal Response: sp4 oriented(5). Total: 15. ED Course: 01/06 22:01 Patient arrived in ED. ra3 22:02 Antonio Pardo MD is Attending Physician. sp4 22:02 Patient has correct armband on for positive identification. Bed in low position. Call kj2 light in reach. Side rails up X 1. 22:02 Arm band placed on. kj2 22:28 Mary Cho, ANAND is Primary Nurse. kj2 22:28 Inserted saline lock: 20 gauge in right antecubital area, using aseptic technique. kj2 23:03 Triage completed. kj2 23:07 Provided Education on: medication administration. kj2 23:26 Test, Serum Sent. kj2 01/07 00:34 No provider procedures requiring assistance completed. kj2 00:36 IV discontinued, intact, bleeding controlled, No redness/swelling at site. Pressure kj2 dressing applied. Administered Medications: 01/06 22:59 Drug: Acyclovir PO 800 mg PO once Route: PO; kj2 23:27 Follow up: Response: No adverse reaction kj01/07 00:53 Follow up: Response: No adverse reaction kj2 00:53 Follow up: Response: No adverse reaction kj2 01/06 22:59 Drug: metoCLOPramide IVP 10 mg IVP once; over 1 to 2 minutes Route: IVP; Site: right kj2 antecubital; 23:27 Follow up: Response: No adverse reaction kj2 01/07 00:52 Follow up: Response: No adverse reaction kj2 01/06 23:09 Not Given (Patient Refused): [id number] mg IVP once kj2 01/07 00:52 Drug: Ibuprofen PO 800 mg PO once Route: PO; kj2 00:52 Follow up: Response: No adverse reaction; Medication administered at discharge. kj2 Medication: 01/06 23:07 VIS not applicable for this client. kj2 Outcome: 01/07 00:20 Discharge ordered by . sp4 00:36 Condition: stable kj2 00:36 Discharged to home ambulatory, kj2 00:36 Discharge instructions given to patient, Instructed on discharge instructions, follow up and referral plans. medication usage, Demonstrated understanding of instructions, follow-up care, medications, Prescriptions given X 4, 00:57 Patient left the ED. kj2 Signatures: Antonio Pardo MD MD sp4 Esthela Vickers ra3 Mary Cho, RN RN kj2 Corrections: (The following items were deleted from the chart) 01/06 23:08 23:07 Patient has correct armband on for positive identification. Bed in low position. kj2 Call light in reach. Side rails up X 1. kj2
--- NOTE | 2024-01-08 00:21 | EDPHYS ---
Physician Documentation [facility] Name: Teresa Bales Age: 33 yrs Sex: Female : 1990 Arrival Date: 01/07/2024 Time: 21:58 Bed 16 Private MD: ED Physician Antonio Pardo HPI: 01/06 22:02 This 33 yrs old Black Female presents to ER via Unassigned with complaints of Migraine sp4 and chills due to medication. 01/07 20:19 33-year-old female presents with acute left-sided facial rash associated with sp4 blistering lesions. Patient was prescribed doxycycline here yesterday for facial cellulitis and now informs me that she is feeling unwell because of medication. Patient has developed migraine. Historical: - Allergies: 01/06 23:03 No Known Allergies; kj2 - PSHx: 01/07 00:37 section; kj2 - Immunization history:: Adult Immunizations up to date. - Infectious Disease History:: Denies. - Social history:: Smoking status: Patient denies any tobacco usage or history of. - Family history:: not pertinent. ROS: 20:19 Constitutional: Negative for fever, chills, and weight loss, positive left facial rash sp4 positive headache positive chills, positive left facial blistering 20:19 All other systems are negative, Exam: 20:19 Constitutional: This is a well developed, well nourished patient who is awake, alert, sp4 and in no acute distress. Head/Face: Normocephalic, atraumatic. Positive for left facial rash at the bridge of the nose also left medial periorbital area consistent with herpes zoster ophthalmicus Eyes: Pupils equal round and reactive to light, extra-ocular motions intact. Lids and lashes normal. Conjunctiva and sclera are not injected. Cornea within normal limits. Periorbital areas with no swelling, redness, or edema. ENT: Nares patent. No nasal discharge, no septal abnormalities noted. Tympanic membranes are normal and external auditory canals are clear. Oropharynx with no redness, swelling, or masses, exudates, or evidence of obstruction, uvula midline. Mucous membranes moist. Neck: Trachea midline, no thyromegaly or masses palpated, and no cervical lymphadenopathy. Supple, full range of motion without nuchal rigidity, or vertebral point tenderness. Chest/axilla: Normal chest wall appearance and motion. Nontender with no deformity. No lesions are appreciated. Cardiovascular: Regular rate and rhythm with a normal S1 and S2. No gallops, murmurs, or rubs. Normal PMI, no JVD. No pulse deficits. Respiratory: Lungs have equal breath sounds bilaterally, clear to auscultation and percussion. No rales, rhonchi or wheezes noted. No increased work of breathing, no retractions or nasal flaring. Abdomen/GI: Soft, with normal bowel sounds. No distension or tympany. No guarding or rebound. No evidence of tenderness throughout. Back: No spinal tenderness. No costovertebral tenderness. Skin: Warm, dry with normal turgor. Normal color with no rashes, no lesions, and no evidence of cellulitis. MS/ Extremity: Pulses equal, no cyanosis. Neurovascular intact. Full, normal range of motion. Neuro: Awake and alert, GCS 15, oriented to person, place, time, and situation. Cranial nerves II-XII grossly intact. Motor strength 5/5 in all extremities. Sensory grossly intact. Psych: Awake, alert, with orientation to person, place and time. Behavior, mood, and affect are within normal limits Vital Signs: 01/06 22:30 BP 142 / 101; Pulse 87; Resp 18; Temp 98.1; Pulse Ox 100% ; kj2 01/07 00:56 BP 152 / 94; Pulse 76; Resp 18; Temp 98; Pulse Ox 100% on R/A; kj2 [place] Coma Score: 20:19 Eye Response: spontaneous(4). Motor Response: obeys commands(6). Verbal Response: sp4 oriented(5). Total: 15. MDM: 01/06 23:08 Patient medically screened. sp4 01/07 20:19 Differential Diagnosis altered mental status, sepsis, flu. Data reviewed: vital signs, sp4 nurses notes. Data reviewed: lab test result(s), UPT: negative. Consideration of Admission/Observation Escalation of care including admission/observation considered. ED course: Urine test is negative. Patient has signs of herpes zoster ophthalmicus. Also some facial redness may be bacterial superinfection. Patient was prescribed Valtrex and Bactrim. Will advised to discontinue doxycycline. . 01/06 22:24 Order name: Test, Serum; Complete Time: 00:17 sp4 Administered Medications: 01/06 22:59 Drug: Acyclovir PO 800 mg PO once Route: PO; kj2 23:27 Follow up: Response: No adverse reaction 01/07 00:53 Follow up: Response: No adverse reaction 00:53 Follow up: Response: No adverse reaction 01/06 22:59 Drug: metoCLOPramide IVP 10 mg IVP once; over 1 to 2 minutes Route: IVP; Site: right kj2 antecubital; 23:27 Follow up: Response: No adverse reaction 01/07 00:52 Follow up: Response: No adverse reaction 01/06 23:09 Not Given (Patient Refused): [id number] mg IVP once 2 01/07 00:52 Drug: Ibuprofen PO 800 mg PO once Route: PO; kj2 00:52 Follow up: Response: No adverse reaction; Medication administered at discharge. kj2 Disposition Summary: 01/08/24 00:20 Discharge Ordered Notes: Location: Home sp4 Problem: new sp4 Symptoms: have improved sp4 Condition: Stable sp4 Diagnosis - Herpesviral vesicular dermatitis sp4 - Herpes Zoster sp4 Followup: sp4 - With: Private Physician - When: 7 - 10 days - Reason: Recheck today's complaints Discharge Instructions: - Discharge Summary Sheet sp4 - Shingles, [id number] sp4 Forms: - Patient Portal Instructions sp4 - Work release form kj2 Prescriptions: - Valtrex 1 gram Oral tablet - take 1 tablet ORAL route every 12 hours for 14 days for 14 days; 28 tablet; sp4 Refills: 0, Product Selection Permitted - Ibuprofen 800 mg Oral Tablet - take 1 tablet ORAL route every 8 hours As needed take with food; 30 tablet; sp4 Refills: 0, Product Selection Permitted - Bactrim DS 800-160 mg Oral Tablet - take 1 tablet ORAL route every 12 hours for 10 days; 20 tablet; Refills: 0, sp4 Product Selection Permitted - ondansetron 8 mg Oral Tablet,disintegrating - take 1 tablet ORAL route every 8 hours PRN nausea; 30 tablet; Refills: 0, sp4 Product Selection Permitted Signatures: Dispatcher [employer] Antonio Avila MD MD sp4 Marquis, Mary, RN RN kj2
[2024-01-08] MEDS ORDERED: IBUPROFEN 400 MG TAB ONE (00:43)
[2024-01-08 01:10] VITALS: O2SAT 100
[2024-01-08 01:13] VITALS: BP 152/94; TEMP 98
== END 2024-01-08 00:57 | disposition home or self-care (01) ==
LOC: ER 21:58
DX: B00.1 Herpesviral vesicular dermatitis (principal); B02.9 Zoster without complications
CPT/HCPCS: 36415; 84703; 96374; 99284; J2765

== ENCOUNTER 2024-04-08 14:15 | Emergency (ER) | payer BC ==
[2024-04-08 15:17] LABS: Absolute Lymphocytes (CBC) 1.5 K/uL (0.7-4.9); Absolute Monocytes 0.3 K/uL (0.1-1.3); Absolute Neutrophil 2.1 K/uL (1.8-8.0); Basophils % 0.7 % (0-1.3); Hematocrit 40.3 % (36.0-45.0); Hemoglobin 13.3 g/dL (12.0-15.0); Lymphocytes % 37.2 % (15.3-44.8); MCH 26.4 pg (27.0-35.0); MCHC 32.9 g/dL (32.0-36.0); MCV 80.2 fL (80-100); MPV 8.9 fL (7.6-11.3); Monocytes % 8.4 % (3.3-12.3); Neutrophils % 52.7 % (41.7-73.7); Nucleated Red Blood Cells % 0.3 % (0-0); Platelets 337 thou/uL (152-406); RBC Red Blood Cell Count 5.03 M/uL (3.86-4.86); Red Cell Distribution Width 14.8 % (12.1-15.2)
[2024-04-08 15:26] LABS: Anion Gap 5.6 mEq/L (5.0-15.0); Potassium 3.6 mEq/L (3.5-5.1)
--- NOTE | 2024-04-08 16:10 | ER ---
Nurse's Notes [facility] Name: Teresa Bales Age: 33 yrs Sex: Female : 1990 Arrival Date: 04/08/2024 Time: 14:15 Bed 14 Private MD: Diagnosis: Paresthesia of skin Presentation: 04/08 14:34 Coronavirus screen: Client denies travel out of the [place] in the last 14 days. At this ll1 time, the client does not indicate any symptoms associated with coronavirus-19. Ebola Screen: Patient denies travel to an Ebola-affected area in the 21 days before illness onset. Initial Sepsis Screen: Does the patient meet any 2 criteria? No. Patient's initial sepsis screen is negative. Does the patient have a suspected source of infection? No. Patient's initial sepsis screen is negative. Risk Assessment: Do you want to hurt yourself or someone else? Patient reports no desire to harm self or others. 14:34 Method Of Arrival: Ambulatory ll1 14:34 Acuity: CARLOS 3 ll1 14:36 Chief complaint: Patient states: Fingers go numb, lips numb, dizziness intermittently ll1 for 2 months. Believes it might be low blood sugar. States she eats sugar then feels better. Onset of symptoms. Onset of symptoms was February 07, 2024. Historical: - Allergies: 14:34 No Known Allergies; ll1 - Home Meds: 14:34 None [Active]; ll1 - PMHx: 14:34 None; ll1 - PSHx: 14:29 section; ll1 - Immunization history:: Adult Immunizations up to date. - Infectious Disease History:: Denies. - Social history:: Smoking status: Patient denies any tobacco usage or history of. Screenin:45 [facility] ED Fall Risk Assessment (Adult) History of falling in the last 3 months, ph including since admission No falls in past 3 months (0 pts) Confusion or Disorientation No (0 pts) Intoxicated or Sedated No (0 pts) Impaired Gait No (0 pts) Mobility Assist Device Used No (0 pt) Altered Elimination No (0 pt) Score/Fall Risk Level 0 - 2 = Low Risk Oriented to surroundings, Maintained a safe environment, Hourly rounding (assess needs \T\ fall precautionary measures) done. Abuse screen: Denies threats or abuse. Denies injuries from another. Nutritional screening: No deficits noted. Tuberculosis screening: No symptoms or risk factors identified. Assessment: 15:30 General: Appears in no apparent distress. comfortable, Behavior is calm, cooperative. ph Pain: Denies pain. Neuro: Level of Consciousness is awake, alert, obeys commands, Oriented to person, place, time, situation, Reports paresthesias to both hands that is intermittent. Cardiovascular: Capillary refill < 3 seconds in bilateral fingers Patient's skin is warm and dry. Respiratory: Airway is patent Respiratory effort is even, unlabored. Derm: Skin is pink, warm \T\ dry. Vital Signs: 14:34 BP 133 / 91; Pulse 79; Resp 18; Temp 97.4; Pulse Ox 99% ; Weight 117.93 kg; Height 5 ll1 ft. 4 in. ; Pain 0/10; 16:46 BP 128 / 79; Pulse 72; Resp 18; Temp 98; Pulse Ox 99% on R/A; ph 14:34 Body Mass Index 44.63 (117.93 kg, 162.56 cm) ll1 14:34 Pain Scale: Adult ll1 ED Course: 14:17 Patient arrived in ED. ra3 14:22 Yovanny Vallejo MD is Attending Physician. ec2 14:29 Arm band placed on. ll1 14:35 Triage completed. ll1 14:57 Caroline Renee, RN is Primary Nurse. ph 14:57 Patient placed in an exam room, on a stretcher. ll1 15:03 CBC with Diff Sent. bc6 15:04 Basic Metabolic Panel Sent. 6 15:04 Initial lab(s) drawn, by ar, sent to lab. Inserted saline lock: 20 gauge in right bc6 antecubital area, using aseptic technique. Blood collected. Flushed with 10 mL NS. 15:15 EKG done, by ED staff, reviewed by Yovanny Vallejo MD. 6 15:30 Patient has correct armband on for positive identification. Call light in reach. Side ph rails up X 1. 16:47 No provider procedures requiring assistance completed. IV discontinued, intact, ph bleeding controlled, No redness/swelling at site. Pressure dressing applied. Administered Medications: No medications were administered Medication: 16:46 VIS not applicable for this client. ph Outcome: 16:09 Discharge ordered by MD. ec2 16:47 Discharged to home ambulatory, with significant other, ph 16:47 Condition: good 16:47 Discharge instructions given to patient, Instructed on discharge instructions, follow up and referral plans. Demonstrated understanding of instructions, follow-up care, 16:48 Patient left the ED. ph Signatures: Caroline Renee RN RN Schuyler Lara RN RN ll1 Natalia Evans 6 Yovanny Vallejo MD MD ec2 Esthela Vickers ra3 Corrections: (The following items were deleted from the chart) 14:36 14:34 Pulse 79bpm; Resp 18bpm; Pulse Ox 99%; Temp 97.4F; 117.93 kg; Height 5 ft. 4 in.; ll1 BMI: 44.6; Pain 0/10, Adult; ll1
--- NOTE | 2024-04-08 16:10 | EDPHYS ---
Physician Documentation [facility] Name: Teresa Bales Age: 33 yrs Sex: Female : 1990 Arrival Date: 04/08/2024 Time: 14:15 Bed 14 Private MD: ED Physician Yovanny Vallejo HPI: 04/08 15:06 This 33 yrs old Black Female presents to ER via Ambulatory with complaints of Numbness. ec2 15:06 Patient arrives today for paresthesias of the bilateral hands. Patient reports that she ec2 has been having paresthesias ongoing for several months and intermittent. Patient reports that she has no significant medical problems, no fevers or chills, no nausea or vomiting. Patient reports no diarrheal symptoms. Reports that she was borderline diabetic. Patient does not take any daily medications.. Historical: - Allergies: 14:34 No Known Allergies; ll1 - Home Meds: 14:34 None [Active]; ll1 - PMHx: 14:34 None; ll1 - PSHx: 14:29 section; ll1 - Immunization history:: Adult Immunizations up to date. - Infectious Disease History:: Denies. - Social history:: Smoking status: Patient denies any tobacco usage or history of. ROS: 15:06 Constitutional: as per hpi ec2 Exam: 15:06 Constitutional: GEN: NAD Head: atraumatic Eyes: EOMI Ears: External ears are ec2 normal. CV: regular rate LUNGS: no respiratory distress ABD: non-distended SKIN: no evidence of rashes MSK: no evidence of trauma 15:16 CT study not indicated or reported. Reason for not performing CT: not indicated ec2 Vital Signs: 14:34 BP 133 / 91; Pulse 79; Resp 18; Temp 97.4; Pulse Ox 99% ; Weight 117.93 kg; Height 5 ll1 ft. 4 in. ; Pain 0/10; 16:46 BP 128 / 79; Pulse 72; Resp 18; Temp 98; Pulse Ox 99% on R/A; ph 14:34 Body Mass Index 44.63 (117.93 kg, 162.56 cm) ll1 14:34 Pain Scale: Adult ll1 MDM: 14:35 Medical Screening Exam initiated ec2 15:06 Data reviewed: vital signs, nurses notes. ED course: Patient arrives today for ec2 evaluation of paresthesias. Examination is unrevealing. Will obtain lab work, urine studies. Differential includes processes such as electrolyte disturbances, anemia, UTI.. 15:15 TNKase (Tenecteplase) Screening: Not Applicable. ED course: EKG independently reviewed ec2 and interpreted by me, shows normal sinus rhythm, rate of 64, no acute ST segment elevations, intervals are nonactionable.. 04/08 14:42 Order name: Basic Metabolic Panel; Complete Time: 16:09 ec2 04/08 14:42 Order name: CBC with Diff; Complete Time: 16:09 ec2 04/08 14:44 Order name: Ionized Calcium EDMS 04/08 14:42 Order name: EKG; Complete Time: 14:42 ec2 04/08 14:42 Order name: Cardiac monitoring; Complete Time: 15:03 ec2 04/08 14:42 Order name: EKG - Nurse/Tech; Complete Time: 15:03 ec2 04/08 14:42 Order name: IV Saline Lock; Complete Time: 15:03 ec2 04/08 14:42 Order name: Labs collected and sent; Complete Time: 15:04 ec2 04/08 14:42 Order name: O2 Per Protocol; Complete Time: 14:57 ec2 04/08 14:42 Order name: O2 Sat Monitoring; Complete Time: 14:57 ec2 Administered Medications: No medications were administered Disposition Summary: 04/08/24 16:09 Discharge Ordered Notes: Location: Home ec2 Condition: Stable ec2 Diagnosis - Parasthesias ec2 - Paresthesia of skin ec2 Followup: ec2 - With: Private Physician - When: - Reason: Recheck today's complaints Discharge Instructions: - Discharge Summary Sheet ec2 - Paresthesia, [id number] ec2 Forms: - Medication Reconciliation Form ec2 - Antibiotic Education ec2 - Prescription Opioid Use ec2 - Patient Portal Instructions ec2 - Leadership Thank You Letter ec2 Signatures: Dispatcher [employer] Caroline Rose RN RN ph Lewis, Lynsay, RN RN ll1 Yovanny Vallejo MD MD ec2
[2024-04-08 17:02] VITALS: O2SAT 99
[2024-04-08 17:05] VITALS: BP 128/79; TEMP 98
--- NOTE | 2024-04-10 15:51 | EKG ---
Test Date: 2024-04-08 Test Time: 15:10:16 Electric Meter Inspector: ELISABETH MEASUREMENT RESULTS: Intervals: Rate: 64 VT: 158 QRSD: 96 QT: 442 QTc: 455 [place]: P: 28 VT: 158 QRS: -8 T: 43 INTERPRETIVE STATEMENTS: Normal sinus rhythm Nonspecific T wave abnormality Abnormal ECG Compared to ECG 10/01/2023 18:17:33 Sinus arrhythmia no longer present T-wave abnormality still present Electronically Signed On 04-10-24 15:48:08 STRIP CUTTER by Leonardo Adam
== END 2024-04-08 16:48 | disposition home or self-care (01) ==
LOC: ER 14:15
DX: R20.2 Paresthesia of skin (principal)
CPT/HCPCS: 36415; 80048; 82330; 85025; 93005; 99284

== ENCOUNTER 2024-08-17 01:21 | Emergency (ER) | payer BC ==
[2024-08-17 02:45] LABS: Absolute Lymphocytes (CBC) 1.3 K/uL (0.7-4.9); Absolute Monocytes 0.2 K/uL (0.1-1.3); Absolute Neutrophil 1.3 K/uL (1.8-8.0); Basophils % 0.1 % (0-1.3); Eosinophils % 1.5 % (0-4.4); Hematocrit 38.3 % (36.0-45.0); Hemoglobin 12.7 g/dL (12.0-15.0); Lymphocytes % 44.3 % (15.3-44.8); MCH 26.4 pg (27.0-35.0); MCHC 33.1 g/dL (32.0-36.0); MCV 79.8 fL (80-100); MPV 9.2 fL (7.6-11.3); Monocytes % 8.4 % (3.3-12.3); Neutrophils % 45.7 % (41.7-73.7); Nucleated Red Blood Cells % 0.1 % (0-0); Platelets 207 thou/uL (152-406); Red Cell Distribution Width 14.7 % (12.1-15.2)
[2024-08-17 03:08] LABS: Albumin 3.5 g/dL (3.4-5.0); Albumin/Globulin Ratio 0.6 (1.1-1.8); Anion Gap 6.6 mEq/L (5.0-15.0); Bilirubin Total 0.3 mg/dL (0.2-1.0); Ferritin 19.7 ng/mL (8-252); Globulin 5.4 g/dL (2.3-3.5); Potassium 3.6 mEq/L (3.5-5.1); Protein, Total 8.9 g/dL (6.4-8.2)
--- NOTE | 2024-08-17 03:19 | EDPHYS ---
Physician Documentation [facility] Name: Teresa Bales Age: 34 yrs Sex: Female : 1990 Arrival Date: 08/17/2024 Time: 01:21 Bed 6 Private MD: ED Physician Antonio Pardo HPI: 08/17 02:00 This 34 yrs old Black Female presents to ER via Ambulatory with complaints of Irregular cp Menstrual Cycle. 02:00 The patient presents with vaginal bleeding that is patient concerned that last cp menstrual cycle only lasted 2 days and that her normal menstrual cycle usually last about 1 week. mild lower abdomen pain. patient concerned about blockage. 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 - Infectious Disease History:: Denies. - Social history:: Smoking status: Patient denies any tobacco usage or history of. ROS: 02:05 Constitutional: Negative for body aches, chills, fever, poor PO intake, cp 02:05 Eyes: Negative for injury, pain, redness, and discharge, cp 02:05 ENT: Negative for drainage from ear(s), ear pain, sore throat, difficulty swallowing, difficulty handling secretions, 02:05 Cardiovascular: Negative for chest pain, edema, palpitations, 02:05 Respiratory: Negative for cough, shortness of breath, wheezing, 02:05 Abdomen/GI: Positive for abdominal pain, of the right lower quadrant and left lower quadrant, Negative for vomiting, diarrhea, constipation, 02:05 Back: Positive for radiated pain, of the low back area, 02:05 : Positive for Exam: 02:10 Constitutional: The patient appears in no acute distress, alert, awake, non-toxic, well cp developed, well nourished, obese, 02:10 Head/Face: Normocephalic, atraumatic. cp 02:10 Eyes: Periorbital structures: appear normal, Conjunctiva: normal, no exudate, no injection, Sclera: no appreciated abnormality, Lids and lashes: appear normal, bilaterally, 02:10 ENT: External ear(s): are unremarkable, Nose: is normal, Mouth: Lips: moist, Oral mucosa: moist, Posterior pharynx: Airway: no evidence of obstruction, patent, 02:10 Chest/axilla: Inspection: normal, 02:10 Cardiovascular: Rate: normal, Rhythm: regular, 02:10 Respiratory: the patient does not display signs of respiratory distress, Respirations: normal, no use of accessory muscles, no retractions, labored breathing, is not present, Breath sounds: are clear throughout, no decreased breath sounds, no stridor, no wheezing, 02:10 Abdomen/GI: Inspection: abdomen appears normal, Bowel sounds: active, all quadrants, Palpation: abdomen is soft and non-tender, in all quadrants, rebound tenderness, is not appreciated, involuntary guarding, is not appreciated, 02:10 Back: pain, is absent, ROM is normal, 02:10 Neuro: Orientation: to person, place \T\ time. Mentation: is normal, Vital Signs: 01:36 BP 141 / 105; Pulse 84; Resp 18; Temp 98.2; Pulse Ox 100% ; Weight 117.93 kg; Height 5 cp4 ft. 4 in. ; Pain 2/10; 02:00 BP 138 / 91; Pulse 67; Resp 18; Pulse Ox 98% on R/A; al5 02:30 BP 101 / 88; Pulse 81; Resp 18; Pulse Ox 98% on R/A; al5 03:58 BP 124 / 90; Pulse 78; Resp 18; Pulse Ox 100% ; al5 01:36 Body Mass Index 44.63 (117.93 kg, 162.56 cm) cp4 01:36 Pain Scale: Adult cp4 MDM: 03:19 Medical Screening Exam initiated cp 03:19 Data reviewed: vital signs, nurses notes, lab test result(s), and as a result, I will cp discharge patient. 03:19 Differential diagnosis: ectopic , endometriosis, menorrhea, pelvic cp inflammatory disease, urinary tract infection, vaginosis. Care significantly affected by the following chronic conditions: Obesity. Counseling: I had a detailed discussion with the patient and/or guardian regarding the historical points, exam findings, and any diagnostic results supporting the discharge/admit diagnosis, lab results, the need for outpatient follow up, for definitive care, an OB/Gyne specialist, to return to the emergency department if symptoms worsen or persist or if there are any questions or concerns that arise at home. 08/17 01:55 Order name: CBC with Diff; Complete Time: 02:58 cp 08/17 02:58 Interpretation: Normal except: WBC 2.90; MCV 79.8; MCH 26.4; NEUT A 1.3. cp 08/17 01:55 Order name: CMP; Complete Time: 03:14 cp 08/17 03:14 Interpretation: Normal except: CL 108; GLUC 121; AST 61; TP 8.9; GLOB 5.4; A/G 0.6. cp 08/17 01:55 Order name: Lipase; Complete Time: 03:14 cp 08/17 01:55 Order name: Test, Urine; Complete Time: 18:45 cp 08/17 01:55 Order name: Urinalysis w/ reflexes; Complete Time: 18:45 cp 08/17 01:55 Order name: Iron Level; Complete Time: 03:14 cp 08/17 03:15 Interpretation: Abnormal: KATHY 19.7. cp 08/17 01:55 Order name: TIBC; Complete Time: 03:14 cp 08/17 03:15 Interpretation: Abnormal: IRON 47.0; %SAT 10.7. cp 08/17 01:55 Order name: IV Saline Lock; Complete Time: 02:27 cp 08/17 01:55 Order name: Labs collected and sent; Complete Time: 02:27 cp Administered Medications: 02:54 Not Given (Patient Refused): TORadol - [id number] mg IVP once al5 02:59 Not Given (Patient Refused): ns 0.9% 1000 ml IV at 1 bolus Per protocol; to be given as al5 a bolus over 60 minutes Disposition: 08/18 02:26 Co-signature as Attending Physician, Antonio Pardo MD I agree with the assessment sp4 and plan of care. I reviewed the patient's care provided by the Advanced Practice Provider and agree with the diagnosis and treatment plan. Disposition Summary: 08/17/24 03:19 Discharge Ordered Notes: Location: Home cp Problem: new cp Symptoms: have improved cp Condition: Stable cp Diagnosis - Irregular menstruation, unspecified cp Followup: cp - With: Private Physician - When: 2 - 3 days - Reason: Recheck today's complaints Discharge Instructions: - Discharge Summary Sheet cp - Abnormal Uterine Bleeding cp - Dysfunctional Uterine Bleeding cp Forms: - Medication Reconciliation Form cp - Antibiotic Education cp - Prescription Opioid Use cp - Patient Portal Instructions cp - Leadership Thank You Letter cp Signatures: Dispatcher [employer] Todd Hernandez PA PA cp Potepalov, Sergey, MD MD sp4 Shawna Ro cp4 Rosibel Reyna RN al5
--- NOTE | 2024-08-17 03:19 | ER ---
Nurse's Notes [facility] Name: Teresa Bales Age: 34 yrs Sex: Female : 1990 Arrival Date: 08/17/2024 Time: : Bed 6 Private MD: Diagnosis: Irregular menstruation, unspecified Presentation: 08/17 01:36 Chief complaint: Patient states: "I had my period for 2 days and then no bleeding after cp4 that. I'm concerned there is a blockage or something.". Coronavirus screen: Client denies travel out of the [place] in the last 14 days. At this time, the client does not indicate any symptoms associated with coronavirus-19. Ebola Screen: Patient negative for fever greater than or equal to 101.5 degrees Fahrenheit, and additional compatible Ebola Virus Disease symptoms Patient denies exposure to infectious person. Patient denies travel to an Ebola-affected area in the 21 days before illness onset. No symptoms or risks identified at this time. Initial Sepsis Screen: Does the patient meet any 2 criteria? No. Patient's initial sepsis screen is negative. Does the patient have a suspected source of infection? No. Patient's initial sepsis screen is negative. Risk Assessment: Do you want to hurt yourself or someone else? Patient reports no desire to harm self or others. Onset of symptoms was August 14, 2024. 01:36 Method Of Arrival: Ambulatory cp4 01:36 Acuity: CARLOS 3 cp4 Triage Assessment: 01:38 General: Appears in no apparent distress. comfortable, Behavior is calm, cooperative, cp4 appropriate for age. Pain: Complains of pain in pelvis Pain does not radiate. Pain currently is 2 out of 10 on a pain scale. GI: Reports cramping. 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 - Infectious Disease History:: Denies. - Social history:: Smoking status: Patient denies any tobacco usage or history of. Screenin:00 [facility] ED Fall Risk Assessment (Adult) History of falling in the last 3 months, al5 including since admission No falls in past 3 months (0 pts) Confusion or Disorientation No (0 pts) Intoxicated or Sedated No (0 pts) Impaired Gait No (0 pts) Mobility Assist Device Used No (0 pt) Altered Elimination No (0 pt) Score/Fall Risk Level 0 - 2 = Low Risk Oriented to surroundings, Maintained a safe environment, Hourly rounding (assess needs \\T\\ fall precautionary measures) done. Abuse screen: Denies threats or abuse. Denies injuries from another. Nutritional screening: No deficits noted. Tuberculosis screening: No symptoms or risk factors identified. Assessment: 02:00 General: Appears in no apparent distress. comfortable, Behavior is calm, cooperative. al5 Pain: Denies pain. Neuro: Level of Consciousness is awake, alert, obeys commands, Oriented to person, place, time, situation. Cardiovascular: Capillary refill < 3 seconds Patient's skin is warm and dry. Respiratory: Airway is patent Respiratory effort is even, unlabored, Respiratory pattern is regular, symmetrical. GI: Abdomen is non-distended, obese, Bowel sounds present X 4 quads. Abd is soft and non tender X 4 quads. : Reports bleeding stopped after 2 days during menses, concerned for blood clot. EENT: No signs and/or symptoms were reported regarding the EENT system. Derm: Skin is intact, is healthy with good turgor, Skin is pink, warm \\T\\ dry. normal. Musculoskeletal: No signs and/or symptoms reported regarding the musculoskeletal system. 03:02 Reassessment: Patient appears in no apparent distress at this time. No changes from al5 previously documented assessment. Patient and/or family updated on plan of care and expected duration. Pain level reassessed. Patient is alert, oriented x 3, equal unlabored respirations, skin warm/dry/pink. 03:20 Reassessment: discharge pending test. al5 03:54 Reassessment: Patient appears in no apparent distress at this time. No changes from al5 previously documented assessment. Patient and/or family updated on plan of care and expected duration. Pain level reassessed. Patient is alert, oriented x 3, equal unlabored respirations, skin warm/dry/pink. Vital Signs: 01:36 BP 141 / 105; Pulse 84; Resp 18; Temp 98.2; Pulse Ox 100% ; Weight 117.93 kg; Height 5 cp4 ft. 4 in. ; Pain 2/10; 02:00 BP 138 / 91; Pulse 67; Resp 18; Pulse Ox 98% on R/A; al5 02:30 BP 101 / 88; Pulse 81; Resp 18; Pulse Ox 98% on R/A; al5 03:58 BP 124 / 90; Pulse 78; Resp 18; Pulse Ox 100% ; al5 01:36 Body Mass Index 44.63 (117.93 kg, 162.56 cm) cp4 01:36 Pain Scale: Adult cp4 ED Course: 01:22 Patient arrived in ED. jj6 01:31 Todd Saleem PA is PHCP. cp 01:31 Antonio Pardo MD is Attending Physician. cp 01:38 Triage completed. cp4 01:38 Arm band placed on right wrist. Patient placed in waiting room. cp4 02:00 Patient has correct armband on for positive identification. Bed in low position. Call al5 light in reach. Side rails up X 1. Provided Education on: plan of care. 02:24 Eugenia Lara, RN is Primary Nurse. kd3 02:27 CBC with Diff Sent. oe 02:27 CMP Sent. oe 02:27 Lipase Sent. oe 02:27 Iron Level Sent. oe 02:28 TIBC Sent. oe 02:28 Inserted saline lock: 20 gauge in right antecubital area, using aseptic technique. oe Blood collected. Flushed with 10 mL NS. 03:02 No provider procedures requiring assistance completed. IV discontinued, intact, al5 bleeding controlled, No redness/swelling at site. Pressure dressing applied, IV removed per patient request. provider notified and aware. Administered Medications: 02:54 Not Given (Patient Refused): TORadol - [id number] mg IVP once al5 02:59 Not Given (Patient Refused): ns 0.9% 1000 ml IV at 1 bolus Per protocol; to be given as al5 a bolus over 60 minutes Medication: 02:00 VIS not applicable for this client. al5 Outcome: 03:19 Discharge ordered by . cp 03:58 Discharged to home ambulatory, al5 03:58 Condition: good 03:58 Discharge instructions given to patient, Instructed on discharge instructions, follow up and referral plans. Demonstrated understanding of instructions, follow-up care, 03:59 Patient left the ED. al5 Signatures: Todd Saleem PA PA cp Espinosa, Orlando oe Jeffries, Jennifer jj6 Eugenia Lara RN RN kd3 Shawna Ro cp4 Rosibel Reyna RN RN al5 Corrections: (The following items were deleted from the chart) 02:48 02:00 BP 161 / 89; Pulse 62bpm; Resp 18bpm; Pulse Ox 95% RA; al5 al5 02:48 02:30 BP 153 / 93; Pulse 64bpm; Resp 19bpm; Pulse Ox 95% RA; al5 al5
[2024-08-17 03:49] LABS: Specific Gravity 1.025 (1.005-1.030); Sqamous Epithelial <5 /HPF (None Seen); Urine Bacteria None Seen /HPF (<20); Urine Bilirubin NEGATIVE (Negative); Urine Blood 2+ (Negative); Urine Clarity Clear (Clear); Urine Color Light-Yellow (Yellow); Urine Culture Reflex Order NOT NEEDED; Urine Glucose NEGATIVE (Negative); Urine Ketones NEGATIVE (Negative); Urine Microscopic Reflex YN ORDER UMIC; Urine Mucus Slight /HPF (None Seen); Urine Nitrite NEGATIVE (Negative); Urine Protein NEGATIVE (Negative); Urine RBC <5 /HPF (None Seen); Urine Urobilinogen Normal (Normal); Urine WBC <5 /HPF (<5); Urine pH 6.5 (5.0-7.0)
[2024-08-17 03:50] LABS: Specific Gravity 1.026 (1.005-1.030)
[2024-08-17 04:05] VITALS: TEMP 98.2
[2024-08-17 04:10] VITALS: BP 124/90; O2SAT 100
== END 2024-08-17 03:59 | disposition home or self-care (01) ==
LOC: ER 01:21
DX: N92.6 Irregular menstruation, unspecified (principal)
CPT/HCPCS: 36415; 80053; 81001; 81025; 82728; 83540; 83690; 84466; 85025; 99284